=== PATIENT | male | born 1995 | race Caucasian/White ===

== ENCOUNTER 2016-09-06 19:38 | Emergency (ER) | payer OTHER ==
[2016-09-06 20:08] VITALS: TEMP 99.7; BMI 32.5
--- NOTE | 2016-09-06 20:19 | PDOC ---
History of Present Illness - General History Source: Patient Exam Limitations: No Limitations - History of Present Illness Initial Comments: 09/06/16 20:46 The patient is a 20 year old male with no significant past medical history, who presents to the ER with left leg ecchymosis for three days. Patient localized the ecchymosis to the left popliteal fossa. He states he was sitting with his left leg tucked in and flexed for a long period of time and developed pain to the area on extension. Patient states he has difficulty bearing weight to the left leg. Denies paresthesia Denies fever, chills, cough Denies bleeding Denies lightheadedness <Mary Bullard - Last Filed: 09/07/16 03:23> <Olga Stock - Last Filed: 09/07/16 05:28> - General Chief Complaint: Pain, Acute Stated Complaint: LT LEG INJURY Time Seen by Provider: 09/06/16 20:18 Past History <Mayr Bullard - Last Filed: 09/07/16 03:23> - Psycho/Social/Smoking Cessation Hx Anxiety: No Suicidal Ideation: No Smoking History: Never smoked Have you smoked in the past 12 months: No Information on smoking cessation initiated: No Hx Alcohol Use: No Drug/Substance Use Hx: No Substance Use Type: None <Olga Stock - Last Filed: 09/07/16 05:28> - Past Medical History Allergies/Adverse Reactions: Allergies Allergy/AdvReac Type Severity Reaction Status Date / Time No Known Allergies Allergy Verified 09/06/16 20:08 Home Medications: Ambulatory Orders NK [No Known Home Medication] 09/06/16 Review of Systems - Review of Systems Able to Perform ROS?: Yes Comments:: 09/06/16 20:46 CONSTITUTIONAL: Absent: fever, no chills, no fatigue EYES: Absent: visual changes ENT: Absent: ear pain, no sore throat CARDIOVASCULAR: Absent: chest pain, no palpitations RESPIRATORY: Absent: cough, no SOB GI: Absent: abdominal pain, no nausea, no vomiting, no constipation, no diarrhea GENITOURINARY: Absent: dysuria, no frequency, no hematuria MUSCULOSKELETAL: Present: (+) ecchymosis to the left popliteal fossa Absent: back pain, no arthralgia, no myalgia SKIN: Absent: rash NEURO: Absent: headache <Uts,Mary - Last Filed: 09/07/16 03:23> *Physical Exam - Vital Signs Last Vital Signs Temp Pulse Resp BP Pulse Ox 99.7 F H 133 H 20 146/76 99 09/06/16 20:05 09/06/16 20:05 09/06/16 20:05 09/06/16 20:05 09/06/16 20:05 - Physical Exam Comments: 09/06/16 20:47 GENERAL: Well-appearing, well-nourished. No apparent distress. HEENT: Normocephalic, atraumatic. PERRL, EOM intact. CARDIOVASCULAR: Normal S1, S2. Regular rate and rhythm. PULMONARY: Clear to auscultation bilaterally. ABDOMEN: Soft, non-distended, non-tender. EXTREMITIES: Ecchymosis on the left popliteal fossa. Negative anterior and posterior drawer signs. 2+ pedal pulse bilaterally. No valgus or varus pressure. Normal ROM in all four extremities. No gross deformities. SKIN: Warm, dry. No rash NEUROLOGICAL: No focal neurological deficits. <Mary Bullard - Last Filed: 09/07/16 03:23> - Vital Signs Last Vital Signs Temp Pulse Resp BP Pulse Ox 99.7 F H 133 H 20 146/76 99 09/06/16 20:05 09/06/16 20:05 09/06/16 20:05 09/06/16 20:05 09/06/16 20:05 <Olga Stock - Last Filed: 09/07/16 05:28> ED Treatment Course - LABORATORY CBC & Chemistry Diagram: 09/06/16 20:30 09/06/16 20:30 - RADIOLOGY Radiograph Interpretation: 09/07/16 03:[address] impression reported by Dr. Shaq Bower: No evidence of acute pathology, but evaluation is slightly limited secondary to suboptimal opacification of the pulmonary arteries <ArMary monique - Last Filed: 09/07/16 03:23> - LABORATORY CBC & Chemistry Diagram: 09/06/16 20:30 09/06/16 20:30 <Olga Stock - Last Filed: 09/07/16 05:28> Medical Decision Making - Medical Decision Making 09/06/16 21:58 WBC is 14 with a shift. Pt is tachycardic. 09/06/16 22:28 Pt comes with swelling of his medial left thigh/popliteal area. States that it occurred after he had his knee flexed for 30 minutes or more. When he extended his leg he flet a pop and developed bruising and swelling. He had pain at the time. Still has pain. He can walk, but he limps if he tries to run. No recent travel. Pt is obese; BMI is 32.5. Ddimer is elevated and he is tachycardic. We will admit and treat for DVT. 09/07/16 03:03 Pt's duplex of his leg demonstrates no DVT; however, given his tachycardia, we will get a CTA vinay to r/o pulmonary embolism... Patient Name: Melanie Guerra THIS IS A PRELIMINARYREPORT FROM [facility] EXAM: CT angiogram of the chest IMAGES: [id number] INDICATION: Rule out pulmonary embolism DATE OF SERVICE: 2016-09-07 02:08:09.0 COMPARISON: none FINDINGS: There is no gross evidence of PE , but evaluation is slightly limited by suboptimal opacification of pulmonary arteries. No aortic aneurysm or dissection. Heart size is normal. Residual thymic tissue is noted. The trachea and bronchi are patent. There is no pleural or pericardial effusion. The lungs are clear. No fractures identified. The upper abdominal structures are normal. IMPRESSION: No evidence of acute pathology, but evaluation is slightly limited secondary to suboptimal opacification of the pulmonary arteries THIS DOCUMENT HAS BEEN ELECTRONICALLY SIGNED 09/07/16 05:26 Pt states that he ate only an egg and cheese sandwich all day. He also had some juice; but no water as he rarely drinks water. Pt is dehydrated and will be given a 2nd L of NSS> After the Liter his vitals are normal. 09/07/16 05:28 Pt discharged and asked to follow with his PMD. <Olga Stock - Last Filed: 09/07/16 05:28> *DC/Admit/Observation/Transfer - Attestations Scribe Attestion: 09/06/16 20:50 Documentation prepared by Mary Bullard, acting as pesticide use medical coordinator for Olga Stock MD. <Mary Bullard - Last Filed: 09/07/16 03:23> - Discharge Dispostion Admit: No <Olga Stock - Last Filed: 09/07/16 05:28> Diagnosis at time of Disposition: Leg pain, Superficial bruising of lower leg, Popliteal pain, Dehydration - Discharge Dispostion Disposition: HOME Condition at time of disposition: Stable - Patient Instructions Printed Discharge Instructions: DI for Leg Pain, DI for Dehydration -- Adult, DI for Hematoma (Bruise)
[2016-09-06 21:17] LABS: BASOPHIL 0.4 % (0-2.0); EOSINOPHIL 1.3 % (0-4.5); MCH 28.2 pg (25.7-33.7); MEAN CELL VOLUME 85.5 fl (80-96); MEAN PLT VOLUME 9.3 fl (7.5-11.1); NEUTROPHILS 83.1 % (42.8-82.8); PLATELET COUNT 312 K/MM3 (134-434); RDW 13.4 % (11.9-15.9); WHITE BLOOD COUNT 14.1 K/mm3 (4.0-10.0)
[2016-09-06 21:30] LABS: INR 1.17 (0.82-1.09); PROTHROMBIN TIME (PATIENT) 12.9 SEC (9.98-11.88)
[2016-09-06 21:40] LABS: ALBUMIN 4.5 g/dl (3.4-5.0); ANION GAP 8 (8-16); CALCIUM 9.3 mg/dL (8.5-10.1); CO2 29 mmol/L (21-32); COCKROFT - GAULT 214.28; CREATININE 0.9 mg/dL (0.7-1.3); GLUCOSE,RANDOM 82 mg/dL (74-106); SGOT/AST 24 U/L (15-37); SGPT/ALT 38 U/L (12-78)
[2016-09-06 21:42] LABS: ALK PHOS 101 U/L (45-117); BILIRUBIN,TOTAL 0.4 mg/dL (0.2-1.0); TOT PROT 7.7 g/dl (6.4-8.2)
[2016-09-06] MEDS ORDERED: SODIUM CHLORIDE 0.9% 500 ML INFUS.BAG IV ONE (21:59)
[2016-09-07] MEDS ORDERED: ACETAMINOPHEN 325 MG TABLET (FP) PO ONE (00:05)
[2016-09-07] MEDS ORDERED: ACETAMINOPHEN 325 MG TABLET (FP) ONE (00:14)
[2016-09-07 00:35] VITALS: BP 132/67; PULSE 110
--- NOTE | 2016-09-09 12:50 | EKG ---
Test Reason : Blood Pressure : / mmHG Vent. Rate : 112 BPM Atrial Rate : 112 BPM P-R Int : 132 ms QRS Dur : 086 ms QT Int : 332 ms P-R-T Axes : 044 074 026 degrees QTc Int : 453 ms SINUS TACHYCARDIA OTHERWISE NORMAL ECG NO PREVIOUS ECGS AVAILABLE Confirmed by DANNY GROSS MD ([id number]) on 09/09/2016 12:50:10 PM Referred By: Confirmed By:DANNY GROSS MD
== END 2016-09-07 04:40 | disposition home or self-care (01) ==
LOC: SUPCPDRO 19:38 → JER 19:38
DX: S80.12XA Contusion of left lower leg, initial encounter (principal); E86.0 Dehydration; X50.1XXA Overexertion from prolonged static or awkward postures, initial encounter; X50.9XXA Other and unspecified overexertion or strenuous movements or postures, initial encounter; Y93.89 Activity, other specified; Y92.89 Other specified places as the place of occurrence of the external cause
CPT/HCPCS: 36415; 71275-TC; 73560-TC-LT; 80053; 85025; 85379; 85610; 85730; 93005; 93010; 93971-TC; 99284-25